=== PATIENT | male | born 2000 | race Caucasian/White ===

== ENCOUNTER 2025-07-12 21:45 | Emergency (ER) | payer OTHER, SELFPAY ==
[2025-07-12 21:46] VITALS: BMI 42.0
[2025-07-12 21:48] VITALS: BP 141/91
[2025-07-12 21:56] VITALS: BP 124/83
[2025-07-12 22:00] VITALS: BP 128/89
--- NOTE | 2025-07-12 22:46 | ED.GENMED ---
History of Present Illness
General
Chief Complaint: Rectal Bleeding
Source: patient, family (Mother at bedside) and previous hospital records (Prior upper endoscopy April 2021. Unremarkable. Outpatient hemorrhoidal banding procedure performed March 2023)
Exam Limitations: none
Time Seen by Provider: 07/12/25 22:07
Nursing documentation reviewed up to this point in time: agreed with
History of Present Illness
History of Present Illness:
The patient is a 25-year-old male with a known history of hemorrhoids who presents with concerns of rectal bleeding. He reports intermittent experiencing minor rectal bleeding after wiping, usually described as 'little specks of blood on toilet
tissue.' This evening, he experienced a more significant episode where the toilet was filled with bright red blood. He noted brief mild rectal pain while passing a brown loose stool along with streaks of bright red blood as well as bright red blood
in the toilet tonight. He has not been passing clots. Only 1 episode of rectal bleeding this evening. The patient associates the occurrence with episodes of diarrhea, having had two loose stools today, with the second instance producing
noticeable blood in the toilet water. He reports mild nausea today but no vomiting, save for a self-induced episode without blood present, and denies any associated fever. He denies abdominal pain.
He has history of internal hemorrhoids and underwent hemorrhoidal banding procedure March 2023.
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
He has undergone several upper endoscopies with most recent April 2021 that was unremarkable. Recommendation at that time was for follow-up upper endoscopy in 4 years for surveillance. He admits that he is due now for upper endoscopy and he has an
appointment with GI scheduled early September.
The patient mentions inconsistent fiber intake, attributing it to irregular dietary routines. He also reports no recent use of antibiotics, international travel, or similar incidences within his household.
He does note that on the whole his stools are generally hard in consistency. He denies significant straining to pass a bowel movement. Denies rectal pain when passing a bowel movement. Denies prolonged sitting on the toilet.
He takes no anticoagulants.
His daily medications include: Dexilant, Wellbutrin, Abilify, Depakote, Adderall, Lexapro.
Recent visit with his PCP July 07 and reportedly underwent unremarkable laboratory studies save for minimally elevated LFTs.
Past History
Past History
ED Past Medical History: GERD (Mcmullen's esophagus), Psychiatric (Bipolar disorder, anxiety, ADD) and Other (Hemorrhoids)
ED Past Surgical History: Tonsilectomy
Social History
Tobacco: Vaping (Vapes nicotine)
Alcohol: None
Drug: None
Personal: Single
Living: with family
Employment: Not employed
Family History
Family History: Other (Family history of autoimmune disease. Brother has ulcerative colitis)
Phy Exam
Physical Exam
Physical Exam:
GENERAL: 25-year-old obese male appears his stated age. Bright and alert, pleasant, appears in no acute distress. Mother is accompanying. Vital signs within normal limits.
EYE: anicteric
NECK: Supple, nontender, no meningismus, no significant adenopathy.
ENT: oral mucosa is moist. No rhinorrhea.
CARDIAC: Regular rate and rhythm. no murmur.
LUNGS: Clear breath sounds bilaterally, no acute respiratory distress, no wheezes/rales/rhonchi
ABDOMEN: Rotund, soft, nondistended, without focal tenderness, no r/g, no cvat. normoactive BS. Rectal exam reveals no external hemorrhoids. No anal fissure. No rectal tenderness. There is a palpable internal hemorrhoid posterior aspect with
very scant bright red blood per digital rectal exam that is heme positive.
NEUROLOGICAL: Alert and oriented x3, no focal neuro deficits. Gait is mulligan and steady.
SKIN: Warm and dry, normal color, skin intact. No rash.
MUSCULOSKELETAL: No C/C/E. peripheral pulses are full and equal b/l. No palpable tenderness.
PSYCH: Normal and appropriate interaction.
Course
Orders/Labs/Results
Orders:
Orders
07/12/25 22:45
Anusol Hc Suppository [Anusol Hc] 25 mg RECTAL NOW STA
Vital Signs
Initial and Last Documented VS:
Initial Vital Signs
Temp Pulse Resp BP Pulse Ox
98.2 F 91 20 141/91 98
07/12/25 21:48 07/12/25 21:48 07/12/25 21:48 07/12/25 21:48 07/12/25 21:48
Last Documented Vital Signs
Temp Pulse Resp BP Pulse Ox
98.2 F 90 12 128/89 98
07/12/25 21:48 07/12/25 22:15 07/12/25 22:15 07/12/25 22:00 07/12/25 22:15
MDM/Problems Addressed
Differential Diagnosis Includes:
The Differential Diagnosis includes, in no particular order and is not limited to:
1. Hemorrhoids
2. Anal fissure
3. Colitis
4. Diverticulosis
5. Inflammatory bowel disease
6. Colorectal cancer
7. Upper gastrointestinal bleed
8. Infectious colitis
9. Irritable bowel syndrome
10. Proctitis
MDM/Problems Addressed:
- Acute: Rectal bleeding, internal hemorrhoid, Diarrhea-associated irritation.
- Chronic: Acid reflux, Managed psychiatric conditions.
Overall well appearance.
Hemodynamically stable.
Reports 1 episode of bright red rectal bleeding associated with a loose brown stool. No recurrent episodes.
Reports intermittent nausea which apparently has been an ongoing/chronic issue but no vomiting.
Reassuring that abdominal exam is benign, soft, nontender. Internal hemorrhoid palpable posterior aspect of the rectum.
Laboratory studies, imaging considered but with reassuring/benign exam at this point not indicated.
Will treat internal hemorrhoids with a course of Anusol suppositories.
Encouraged to resume fiber supplement and continue this on a daily basis.
Follow-up with GI as already scheduled and recommend follow-up with colorectal surgery. Patient has been evaluated by Dr. Orona in the past.
Strict return precautions discussed.
Chronic conditions affecting care:
GERD, history of Mcmullen's esophagus. Chronically maintained on Dexilant.
History of internal hemorrhoids with prior banding procedure March 2023.
Chronic obesity
*Pulse Oximetry
SaO2: 98
Oxygen Mode of Delivery: Room air
Patient hypoxic: no
*Critical Care Note
Total Time (30-74mins, 75-104mins- exclusive of procedures): Not Applicable
Patient Management
Social determinants of health affecting care: Other (The patient discusses aspects of lifestyle that contribute to his condition, including dietary habits and an inconsistent fiber intake potentially due to his routine. He smokes nicotine but denies
alcohol use.)
ED Attending Note
-
Portions of this chart may have been created with voice recognition software.� Occasional wrong word or��sound alike� substitutions may have occurred due to the inherent limitations of voice recognition software.
Discharge Plan
Departure
Patient Disposition: Home (Routine Discharge)
Date of Disposition: 07/12/25
Time of Disposition: 22:46
Patient with high blood pressure during this ER visit?: No
Condition: Good
Discharge Problem:
Bright red rectal bleeding, Internal bleeding hemorrhoids
Instructions: Hemorrhoids (DC), Gastrointestinal Bleeding (DC)
Prescriptions:
New
hydrocortisone acetate [Anusol-HC] 25 mg suppository
25 mg OK BID Qty: 24 0RF
No Action
fluoxetine 20 MG capsule
20 mg PO DAILY
ondansetron HCl 4 MG tablet
4 mg PO TIDPRN PRN (Reason: nausea and vomiting) Qty: 10 0RF
Referrals:
Derek Orona MD [Active, ColoRectal] - Call in 1-3 days for appt
Owen Perez CRNP [Family Provider, Internal Medicine] - Call in 1-3 days for appt
Interventions
Interventions:
*Risk Screen - Suicide Last Done: 07/12/25 22:12
*General Assessment Last Done: 07/12/25 21:48
*Neglect/Abuse Screening Last Done: 07/12/25 22:12
*ED- Fall Risk Assessment Last Done: 07/12/25 22:12
PB-Dytzqr-Iarmwhlcwq Assessment Last Done: 07/12/25 22:12
ED- Cardiac Assessment Last Done: 07/12/25 22:12
ED- Pulmonary Assessment Last Done: 07/12/25 22:12
Discharge Date and Time
Print Language: SETSWANA
[2025-07-12 23:00] VITALS: BP 125/84
[2025-07-12] MEDS: ANUSOL HC 25 MG RECTAL (23:49)
== END 2025-07-12 23:53 | disposition home or self-care (01) ==
LOC: EMR 21:45
PROVIDERS: EMERGENCY PHYSICIAN Emergency Medicine; FAMILY PHYSICIAN Registered Nurse
DX: K64.8 Other hemorrhoids (principal); K21.9 Gastro-esophageal reflux disease without esophagitis; K22.70 Barrett's esophagus without dysplasia; E66.9 Obesity, unspecified; Z68.41 Body mass index [BMI] 40.0-44.9, adult; F31.9 Bipolar disorder, unspecified; F41.9 Anxiety disorder, unspecified; F98.8 Other specified behavioral and emotional disorders with onset usually occurring in childhood and adolescence; F17.290 Nicotine dependence, other tobacco product, uncomplicated; Z83.79 Family history of other diseases of the digestive system
CPT/HCPCS: 99282

== ENCOUNTER 2025-09-20 06:28 | Day surgery (SDC) | payer BC, OTHER, SELFPAY | END 2025-09-20 13:44 | disposition home or self-care (01) | LOC: GI 06:28 | PROVIDERS: ATTENDING PHYSICIAN Internal Medicine Gastroenterology | DX: K44.9 Diaphragmatic hernia without obstruction or gangrene (principal); K22.70 Barrett's esophagus without dysplasia; K22.89 Other specified disease of esophagus | CPT/HCPCS: 43239; 88305 ==

== ENCOUNTER → 2025-09-26 10:06 | Outpatient (REF) | payer BC, OTHER, SELFPAY | LOC: RAD 10:06 | PROVIDERS: ATTENDING PHYSICIAN Registered Nurse | DX: R79.89 Other specified abnormal findings of blood chemistry (principal) | CPT/HCPCS: 76700 ==

== ENCOUNTER 2025-10-26 23:55 | Emergency (ER) | payer BC, OTHER, SELFPAY ==
[2025-10-27 00:14] VITALS: BP 123/83
[2025-10-27 00:34] VITALS: BP 121/71
[2025-10-27 00:35] VITALS: BMI 38.2
--- NOTE | 2025-10-27 00:36 | ED.GENMED ---
History of Present Illness
General
Chief Complaint: Abdominal Symptoms
Time Seen by Provider: 10/27/25 00:29
Nursing documentation reviewed up to this point in time: agreed with
History of Present Illness
History of Present Illness:
25-year-old male brought to the ER by mom for evaluation of nausea vomiting and diarrhea along with bodyaches which started today. Mom reports that multiple family members have been ill over the last week, with influenza and vomiting diarrhea
illness. Patient did take some Tums earlier today which seemed to stave off vomiting for a few hours but then he had recurrence. He reports that he was feeling severely nauseated and he forced himself to vomit, he did notice a small streak of
blood in his emesis. He has had multiple watery bowel movements today which she describes as nonbloody. He reports diffuse body pain, not necessarily abdominal pain per se. No recent antibiotic usage.
Past History
Past History
ED Past Medical History: GERD (Mcmullen's esophagus), Psychiatric (Bipolar disorder, anxiety, ADD) and Other (Hemorrhoids)
ED Past Surgical History: Tonsilectomy
Social History
Tobacco: Vaping (Vapes nicotine)
Alcohol: None
Drug: None
Personal: Single
Living: with family
Employment: Not employed
Family History
Family History: Other (Family history of autoimmune disease. Brother has ulcerative colitis)
Review of Systems
Review of Systems
Allergies reviewed?: Yes
Phy Exam
Physical Exam
Physical Exam:
Patient is awake, alert, appears in no acute distress, appears fatigued, head is NCAT, PERRL, EOMI mucous membranes moist, conjunctiva pink, posterior pharynx is clear, no exudates, no erythema, no uvular deviation, no stridor, no trismus, heart
regular rate and rhythm without murmurs or ectopy, lungs are clear to auscultation without wheezes rales or rhonchi, no JVD, abdomen is soft and nontender on palpation, extremities without edema, GCS is 15
Course
Orders/Labs/Results
Orders:
Orders
10/27/25 00:34
Famotidine [Pepcid] 20 mg IV NOW STA
Ketorolac [Toradol] 15 mg IV NOW STA
Ondansetron HCl [Zofran] 4 mg PO NOW STA
10/27/25 00:36
0.9% Sodium Chloride 1000 ml [Nss] 2,000 ml IV BOLUS
10/27/25 00:47
Complete Blood Count/With Diff Urgent
Comprehensive Metabolic Panel Urgent
10/27/25 00:51
Ondansetron Injectable [Zofran] 4 mg IV NOW STA
10/27/25 00:53
Influenza A+B Rapid Molecular Urgent
ADITI Source: Nasal Swab
Specimen Description:
Abnormal Lab Results
10/27/25
00:47
WBC 12.3 H 10^3/uL
(4.8-10.8)
MCHC 31.8 L g/dL
(33.0-37.0)
Abs Immat Gran (auto) 0.1 H 10^3/uL
(0-0.05)
Absolute Neuts (auto) 10.0 H 10^3/uL
(1.4-6.5)
Absolute Lymphs (auto) 1.1 L 10^3/uL
(1.2-3.4)
Absolute Monos (auto) 0.9 H 10^3/uL
(0.1-0.6)
Neutrophils % 81.0 H %
(42.2-75.2)
Lymphocytes % 9.2 L %
(20.5-51.1)
AST 73 H U/L
(17-59)
ALT 76 H U/L
(0-50)
10/27/25 00:47
10/27/25 00:47
Vital Signs
Initial and Last Documented VS:
Initial Vital Signs
Temp Pulse Resp BP Pulse Ox
98.5 F 122 20 123/83 98
10/27/25 00:14 10/27/25 00:14 10/27/25 00:14 10/27/25 00:14 10/27/25 00:14
Last Documented Vital Signs
Temp Pulse Resp BP Pulse Ox
98.5 F 122 20 121/71 98
10/27/25 00:14 10/27/25 00:14 10/27/25 00:14 10/27/25 00:34 10/27/25 00:40
MDM/Problems Addressed
Differential Diagnosis Includes:
Differential diagnosis considered but not limited to influenza, norovirus, electrolyte dyscrasia along with other etiologies considered
Chronic conditions affecting care:
barretts esophagus, bipolar, anxiety
*Pulse Oximetry
SaO2: 98
Oxygen Mode of Delivery: Room air
Patient hypoxic: no
Update Note
Update Note:
Will treat symptomatically while awaiting screening labs and flu swab. Patient and mother present at bedside agree with plan at current.
0245: Patient sleeping comfortably. IV fluids infusing. No further emesis since arrival in the ER. I discussed with patient and mother present bedside very reassuring workup. We discussed minor elevation in LFTs-mom states that this is something
they have been evaluating as an outpatient. They would agree with plan for discharge home for continued supportive treatment of likely viral gastroenteritis. Will prepare discharge paperwork pending uneventful remaining stay in the emergency
department
ED Attending Note
-
Portions of this chart may have been created with voice recognition software.� Occasional wrong word or��sound alike� substitutions may have occurred due to the inherent limitations of voice recognition software.
Discharge Plan
Departure
Discharge Problem:
Vomiting and diarrhea
Instructions: Diarrhea in adults - ED (DC), Nausea and vomiting in adults - ED (DC)
Prescriptions:
New
ondansetron 4 mg tablet,disintegrating
4 mg PO TIDPRN PRN (Reason: nausea/vomiting) Qty: 10 0RF
No Action
fluoxetine 20 MG capsule
20 mg PO DAILY
ondansetron HCl 4 MG tablet
4 mg PO TIDPRN PRN (Reason: nausea and vomiting) Qty: 10 0RF
hydrocortisone acetate [Anusol-HC] 25 mg suppository
25 mg MS BID Qty: 24 0RF
Referrals:
Owen Perez CRNP [Family Provider, Internal Medicine]
Activity Restrictions/Additional Instructions:
Use Zofran as prescribed as needed for nausea. Follow a clear liquid diet for the next 24 hours. After this time if your symptoms have improved you may advance to a regular diet as tolerated. Return to the ER for any concerns. Please follow-up
with your doctor for reevaluation of your liver function tests which were just slightly abnormal today
Interventions
Interventions:
*General Assessment Last Done: 10/27/25 00:14
*Neglect/Abuse Screening Last Done: 10/27/25 00:14
*ED COVID-19 Vaccine History Last Done: 10/27/25 00:14
*ED Influenza Vaccine History Last Done: 10/27/25 00:14
[facility] Fall Risk Assessment Tool Last Done: 10/27/25 00:35
*Risk Screen - Suicide (C-SSRS) Last Done: 10/27/25 00:14
ZN-Wwmsau-Kqvziyfeia Assessment Last Done: 10/27/25 00:35
Discharge Date and Time
Print Language: SINHALA
[2025-10-27] MEDS: NSS 2000 IV (00:56)
[2025-10-27] MEDS: ZOFRAN 4 MG IV (00:56)
[2025-10-27] MEDS: PEPCID 20 MG IV (00:56)
[2025-10-27] MEDS: TORADOL 15 MG IV (00:57)
[2025-10-27 01:18] LABS: Hematocrit 48.7 % (39.0-52.0); Hemoglobin 15.5 g/dL (13.0-18.0); Mean Corp Hgb Conc. 31.8 g/dL (33.0-37.0); Mean Corpuscular Volume 88.9 fL (80.0-94.0); Nucleated Red Blood Cells % 0 % (-); Platelet Count 242 10^3/uL (130-400); Red Cell Dist. Width 12.3 % (11.5-14.5)
[2025-10-27 01:38] LABS: ALT (SGPT) 76 U/L (0-50); AST (SGOT) 73 U/L (17-59); Albumin 4.5 g/dl (3.5-5.0); Alkaline Phosphatase 116 U/L (38-126); Blood Urea Nitrogen 14 mg/dl (9-20); Calcium 9.2 mg/dl (8.4-10.2); Carbon Dioxide 27 mmol/L (22-30); Chloride 101 mmol/L (98-107); Estimated Creatinine Clearance > 125 ml/min; Glucose 95 mg/dl (70-99); Potassium 4.2 mmol/L (3.5-5.1); Sodium 139 mmol/L (135-145); Total Protein 7.5 g/dl (6.3-8.2); eGFR > 60.00
== END 2025-10-27 04:32 | disposition home or self-care (01) ==
LOC: EMR 23:55
PROVIDERS: EMERGENCY PHYSICIAN Emergency Medicine; FAMILY PHYSICIAN Registered Nurse
DX: R11.2 Nausea with vomiting, unspecified (principal); R19.7 Diarrhea, unspecified; M79.10 Myalgia, unspecified site; F17.290 Nicotine dependence, other tobacco product, uncomplicated; Z87.19 Personal history of other diseases of the digestive system
CPT/HCPCS: 96374; 96375; 96361; 99284; 80053; 85025; 87502